=== PATIENT | female | born 1985 | race American Indian/Alaskan Native ===

== ENCOUNTER 2021-01-28 11:17 | Emergency (ER) | payer SELFPAY ==
[2021-01-28 11:31] VITALS: BP 125/81
--- NOTE | 2021-01-28 13:33 | Emergency Department Report ---
Chief Complaint: Extremity Injury, Upper Stated Complaint: LEFT HAND PAIN Time Seen by Provider: 01/28/21 12:29 - HPI History of Present Illness: 35-year-old -[place] female patient presents with complaints of left elbow pain yesterday. Patient states that she was picking up a heavy item, she got pain on the lateral portion of her elbow that resolved within a few minutes. She denies any further pain, swelling, bruising, numbness/tingling/weakness in her arm, or difficulty moving her elbow or hand. - Exam Vital Signs: Vital Signs 01/28/21 11:30 Temperature 98.6 F Pulse Rate 71 Respiratory 18 Rate Blood Pressure 125/81 O2 Sat by Pulse 99 Oximetry MSE screening note: Focused history and physical exam performed. Due to findings the following was ordered: ED Disposition for MSE Clinical Impression: Left elbow pain Disposition: - MED SCREENING EXAM-LEFT Is pt being admited?: No Condition: Stable Instructions: Joint Pain, [id number] Referrals: [facility] [Provider Group] - 3-5 Days Forms: Work/School Release Form(ED) ED Review of Systems ROS: Stated complaint: LEFT HAND PAIN Other details as noted in HPI Musculoskeletal: denies: joint swelling Skin: denies: change in color Neurological: denies: numbness, paresthesias ED Physical Exam - General Limitations: No Limitations General appearance: alert, in no apparent distress - Head Head exam: Present: atraumatic, normocephalic - Respiratory Respiratory exam: Absent: respiratory distress - Cardiovascular Cardiovascular Exam: Present: regular rate - Expanded Upper Extremity Exam Left Elbow exam: Present: normal inspection, full ROM. Absent: tenderness, swelling, deformity Vascular: Absent: vascular compromise - Neurological Exam Neurological exam: Present: alert, oriented X3 - Psychiatric Psychiatric exam: Present: normal affect, normal mood - Skin Skin exam: Present: warm, dry, intact, normal color. Absent: rash, cyanosis, diaphoretic, ecchymosis
== END 2021-01-28 13:30 | disposition left against medical advice (07) ==
LOC: ED 11:17
DX: M25.522 Pain in left elbow (principal); Z53.21 Procedure and treatment not carried out due to patient leaving prior to being seen by health care provider

== ENCOUNTER 2021-04-22 11:43 | Emergency (ER) | payer SELFPAY ==
[2021-04-22 12:16] VITALS: BP 145/90
--- NOTE | 2021-04-22 12:23 | Emergency Department Report ---
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 Due to findings the following was ordered: NO LIFE THREAT REQUESTING WORK NOTE MSE HOME Patient discussed with doctor:: ADONAY VIDES ED Disposition for MSE Clinical Impression: Arm pain Disposition: 01 HOME / SELF CARE / HOMELESS Is pt being admited?: No Does the pt Need Aspirin: No Condition: Stable Additional Instructions: OVER THE COUNTER MOTRIN OR TYLENOL FOR PAIN Referrals: IVONNE AVILA MD [Staff Physician] - 3-5 Days Forms: Work/School Release Form(ED) Time of Disposition: 12:23
== END 2021-04-22 12:24 | disposition home or self-care (01) ==
LOC: ED 11:43
DX: M79.602 Pain in left arm (principal)
CPT/HCPCS: 99281